=== PATIENT | male | born 1950 | race Caucasian/White ===

== ENCOUNTER 2016-07-13 09:26 | Inpatient (IN) | payer OTHER ==
[2016-06-26 13:43] VITALS: BMI 26.0
--- NOTE | 2016-06-26 14:13 | PAT Medication Instructions ---
Service Date Jun 26, 2016. Current Home Medication List Acetaminophen (Tylenol Arthritis Ext Rel), 650-1,300 MG PO Q8H PRN for PRN Celecoxib (CeleBREX), 200 MG PO BID Doxycycline (Monohydrate) (Doxycycline), 100 MG PO UD PRN for RN Meclizine Hcl (Meclizine Hcl), 1 TAB PO PRN Multivitamin (Multivitamin), 1 TAB PO QAM Nutritional Supplements (Osteo Advance), 1 TAB PO QAM Probiotic Product (Probiotic), 1 TAB PO QAM [Clotrimazole Betha], 1 DOSE TOP PRN [Voltaren Gel], 1 DOSE TOP PRN Medication Instructions For Your Scheduled Surgery - Check with surgeon for instructions: Celecoxib (CeleBREX), 200 MG PO BID - Hold the following medications 24 hours prior to surgery: [Clotrimazole Betha], 1 DOSE TOP PRN [Voltaren Gel], 1 DOSE TOP PRN - Hold the following medications the morning of surgery: Probiotic Product (Probiotic), 1 TAB PO QAM Nutritional Supplements (Osteo Advance), 1 TAB PO QAM Multivitamin (Multivitamin), 1 TAB PO QAM - Take the following medications the morning of surgery with a sip of water: Meclizine Hcl (Meclizine Hcl), 1 TAB PO PRN (if needed) Acetaminophen (Tylenol Arthritis Ext Rel), 650-1,300 MG PO Q8H PRN for PRN (if needed) Doxycycline (Monohydrate) (Doxycycline), 100 MG PO UD PRN for RN (if needed) - Take the following medications as scheduled the night before surgery: Meclizine Hcl (Meclizine Hcl), 1 TAB PO PRN (if needed) Acetaminophen (Tylenol Arthritis Ext Rel), 650-1,300 MG PO Q8H PRN for PRN (if needed) Doxycycline (Monohydrate) (Doxycycline), 100 MG PO UD PRN for RN (if needed) If you have any questions please call us at [phone] (Frannie Obrien PA-C ) or [phone] or [phone]
[2016-06-26 14:14] LABS: BASO % 0.3 %; BASO ABS # 0.02 K/uL (0-0.2); COMPLETE YES; EOS % 4.8 %; HEMATOCRIT 43.5 % (42-52); IG% 0.1 %; LYMPH % 31.5 %; LYMPH ABS # 2.15 K/uL (1.2-3.4); MEAN CELL VOLUME 87.9 fL (80-100); MEAN CORPUSCULAR HEMOGLOBIN 30.5 pg (25-34); MEAN CORPUSCULAR HGB CONC 34.7 g/dl (32-36); MEAN PLATELET VOLUME 9.1 fL (7.4-10.4); MONO % 9.7 %; NEUT % 53.6 %; PLATELET COUNT 250 K/uL (130-400); RED BLOOD COUNT 4.95 M/uL (4.7-6.1); WHITE BLOOD COUNT 6.83 K/uL (4.8-10.8)
[2016-06-26 14:23] LABS: INR 0.9 (0.9-1.1); PARTIAL THROMBOPLASTIN RATIO 1.2
--- NOTE | 2016-06-26 14:55 | DIAGNOSTIC IMAGING REPORT ---
TWO VIEW CHEST CLINICAL HISTORY: Preoperative examination. FINDINGS: PA and lateral chest radiographs are obtained. No prior studies are available for comparison at the time of dictation. The cardiomediastinal silhouette is unremarkable. There is mild atherosclerotic calcification of the thoracic aorta. The lungs and pleural spaces are clear. There is no pneumothorax. The bony thorax appears intact. IMPRESSION: No active disease in the chest. Electronically signed by: Julien Marin M.D. 06/26/2016 2:53 PM Dictated Date/Time: 06/26/2016 2:52 PM
[2016-06-26 15:26] LABS: BUN/CREATININE RATIO 28.7 (10-20); CALCIUM 8.8 mg/dl (8.5-10.1); CREATININE 0.83 mg/dl (0.60-1.40)
[2016-06-26 15:26] LABS: URINE APPEARANCE CLEAR (CLEAR); URINE BILIRUBIN NEG (NEG); URINE COLOR YELLOW; URINE NITRITE NEG (NEG); URINE PH 5.5 (4.5-7.5); URINE SPECIFIC GRAVITY 1.023 (1.000-1.030); UROBILINOGEN NEG (NEG); ZZUR CULT IF INDIC CLEAN CATCH NO
[2016-06-26 15:36] LABS: MANUAL MICROSCOPIC REQUIRED? NO; REVIEW REQ? NO
--- NOTE | 2016-07-07 22:17 | HISTORY & PHYSICAL EXAMINATION ---
DATE OF ADMISSION: 07/13/2016 CHIEF COMPLAINT: Bilateral hip pain and discomfort, left side greater than right. HISTORY OF PRESENT ILLNESS: The patient is a 66-year-old gentleman who presents for surgical treatment of his left hip primarily. He has got a fairly long history of bilateral hip pain and discomfort, left side a bit worse than the right. He has been managed by Dr. Pratt and then referred to my clinic for definitive treatment/hip replacement. He describes groin and thigh pain. The left side is worse than the right. 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 He works on stretching regularly and trying to manage this without much success. He is taking Celebrex which takes the edge off that is about it. He has difficulty putting his shoes and socks on. He cannot walk any long distance and would like to begin having treatment to fix this problem in both hips. He would like to do his left hip first. PAST MEDICAL HISTORY: 1. Elevated cholesterol. 2. Vertigo. 3. Spinal stenosis. 4. Hernia, status post repair. PAST SURGICAL HISTORY: 1. Right ankle spur removal and arthrodesis. 2. Appendectomy. 3. Herniorrhaphy. ALLERGIES: PENICILLIN WHICH CAUSES RASH. HE ALSO DESCRIBES ALLERGY TO AVELOX AND AUGMENTIN. CURRENT MEDICINES: 1. Celebrex 200 mg a day. 2. Diclofenac gel. 3. Centrum Silver. 4. Osteo Bi-Flex. 5. Probiotic. 6. Zoster vaccine. 7. Tylenol. SOCIAL HISTORY: A 66-year-old male. 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 He is . FAMILY HISTORY: Noncontributory. REVIEW OF SYSTEMS: Negative for diabetes, neurologic problems, vascular problems or bleeding disorders. Denies any chest pain or shortness of breath. He does have underlying spinal stenosis and struggles with this. PHYSICAL EXAMINATION: GENERAL: Reveals a healthy pleasant thin male. He looks to be in excellent health. HEENT: Benign. NECK: Supple. No lymphadenopathy. LUNGS: Clear to auscultation. HEART: Regular rate and rhythm. ABDOMEN: Soft, nontender, nondistended. EXTREMITIES: Grossly neurovascularly intact except as follows: Examination of both lower extremities reveals patient walks with a slightly antalgic gait. He limps on the left side a little bit more than the right. He walks with kind of stiff hips a bit. Leg lengths clinically appear pretty equal. He does have pretty reasonable hip motion on both sides, concerning his advanced arthritis and internally rotate to 10 degrees bilaterally with some mild pain. Negative straight leg raise on either side. X-RAYS: X-rays of both hips reveal advanced bilateral hip DJD, the left side worse than the right. He has got complete loss of the superior joint space, left side worse than the right. He has got cystic changes in the femoral head with some flattening of the femoral head on the left side. 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 He also has underlying spinal stenosis. He has failed conservative treatment and would like to have his hips doing better. PLAN: We are going to take him to the operating room and do left total hip replacement. The risks and benefits of this procedure were explained to patient including but not limited to DVT, PE, , infection, neurological injury, vascular injury, bleeding problem, pain, limited range of motion, stiffness, failure to relieve symptoms, incomplete relief of symptoms, leg length inequality, need for further surgery in the future, etc. The patient understands and desires to proceed. Informed consent was obtained. She does have arthritis in both hips and we will likely lengthen his left hip a bit. He is going to need his right side done and that can be lengthened at that time. He does have fairly good motion considering his advanced disease and I think he is at slightly increased risk of dislocation so we will try to maximize his stability. As far as discharge plans, his is an occupational therapist. He is planning to be discharged to home using [facility] home health program. He can take Celebrex up to the time of surgery. KORTNEY
[2016-07-13] VITALS (17 sets, daily range): BP systolic 102–159; BP diastolic 65–102; PULSE 46–80; TEMP 36.4–36.7; O2SAT 2–100; Ht 172.7 cm; Wt 78.0 kg
[~2016-07-13] VITALS: Ht 172.7 cm; Wt 78.0 kg
[~2016-07-13 09:26] MED LIST: ACET1TAB84 PO; ACETAMINOPHEN 500 MG TAB PO SCH; BUPIVACAINE 0.5 % 5 MG/1 ML PF 10ML VIAL ONE; CLB/200 PO; CLINDAMYCIN 600 MG/54 ML D5W IV SCH; DOXY-300 PO; FAMOTIDINE 20 MG TAB PO SCH; GABAPENTIN 300 MG CAP PO SCH; GENERAL ORDER PROBLEM SCH; LACTATED RINGER'S 1000ML 1,000 ML IV SCH; LACTATED RINGER'S 1000ML 500 ML IV ONE; LACTATED RINGER'S 1000ML IV SCH; MECL1TAB42 PO; METOCLOPRAMIDE HCL 10 MG TAB PO SCH; MISCCAP80 PO; MULT-506 PO; NUTRTAB55 PO; SCOPOLAMINE 1.5 MG TDSY TD SCH; TRANEXAMIC ACID INJ 1,000 MG in SODIUM CHLORIDE 0.9% 100ML 100 ML IV SCH; VOLTAREN GEL TOP; [UNRECOGNIZED DRUG - OTHER] TOP
[2016-07-13] MEDS ORDERED: HYDROmorphone INJ 1 MG/ML SYR IV PRN (09:45)
[2016-07-13] MEDS ORDERED: MEPERIDINE HCL 25 MG/ML CARP IV PRN (09:45)
[2016-07-13] MEDS ORDERED: FENTANYL CITRATE INJ 50 MCG/1 ML 2 ML VIAL IV PRN (09:45)
[2016-07-13] MEDS ORDERED: LABETALOL HCL IV 5 MG/ML 20ML IV PRN (09:45)
[2016-07-13] MEDS ORDERED: ATROPINE SULFATE 0.1 MG/ML 5ML SYR IV PRN (09:45)
[2016-07-13] MEDS ORDERED: ONDANSETRON INJ 2 MG/ML 2 ML VIAL IV PRN ×2 (09:45→13:30)
[2016-07-13] MEDS ORDERED: EpHEDrine SULFATE INJ 50 MG/ML AMP IV PRN ×2 (09:45→14:15)
[2016-07-13] MEDS ORDERED: BACITRACIN 50000 UNIT VIAL ONE (10:54)
[2016-07-13] MEDS ORDERED: BUPIVACAINE/EPINEPHRINE 0.5% MPF 1:200,000 30 ML VIAL ONE (10:54)
[2016-07-13] MEDS ORDERED: MIDAZOLAM HCL 1 MG/ML 2ML VIAL ONE ×2 (11:16)
[2016-07-13] MEDS ORDERED: FENTANYL CITRATE INJ 50 MCG/1 ML 2 ML VIAL ONE (11:16)
[2016-07-13] MEDS ORDERED: MoRPHine SULFATE PF 1 MG/ML 10 ML AMP/VIAL ONE (11:16)
--- NOTE | 2016-07-13 11:34 | History & Physical Bridge Note ---
H&P Re-Evaluation Bridge Note: I have examined the patient, reviewed the History & Physical and in the interval since the performance of the History & Physical I have noted the following changes of clinical significance: No changes noted
[2016-07-13] MEDS ORDERED: ONDANSETRON INJ 2 MG/ML 2 ML VIAL ONE (12:06)
[2016-07-13] MEDS ORDERED: PHENYLEPHRINE 100MCG/ML 5ML SYR ONE (12:16)
--- NOTE | 2016-07-13 13:16 | [facility] Post Operative Brief Note ---
Immediate Operative Summary Operative Date July 13, 2016. Pre-Operative Diagnosis Left Hip Degenerative Joint Disease Post-Operative Diagnosis Left Hip Degenerative Joint Disease Procedure(s) Performed Left total hip arthroplasty, uncemented Surgeon Dr. Núñez Nurse [employer] Surgeon(s) ELVIA Boyer Estimated Blood Loss 200ml Findings Left Hip DJD Fluids (cc crystalloids) 2000 cc Specimens A) Left femoral head- bone & tissue Drains None Anesthesia Spinal Complication(s) None Disposition Recovery Room / PACU
[2016-07-13] MEDS ORDERED: ALUMINUM/MAGNESIUM/SIMETH (MAALOX MAX) 30 ML UDC PO PRN (13:30)
[2016-07-13] MEDS ORDERED: BISACODYL 10 MG SUPP PR PRN (13:30)
[2016-07-13] MEDS ORDERED: SILVER SULFADIAZINE 1% CR 50 GM JAR EXT PRN (13:30)
[2016-07-13] MEDS ORDERED: BETAMETHASONE/CLOTRIMAZOLE CR 45 GM TUBE PR PRN (13:30)
[2016-07-13] MEDS ORDERED: TAMSULOSIN HCL 0.4 MG CAP PO PRN (13:30)
[2016-07-13] MEDS ORDERED: MAGNESIUM HYDROXIDE SUSP 30 ML UDC PO PRN (13:30)
--- NOTE | 2016-07-13 13:41 | DIAGNOSTIC IMAGING REPORT ---
LEFT PELVIS/UNILATERAL HIP 1 VIEW CLINICAL HISTORY: IN PACU - A/P PELVIS and LATERAL HIP INCLUDING ALL OF IMPLANT postoperative evaluation COMPARISON: None. DISCUSSION: Total left hip replacement. Good contact between prosthetic and underlying bone. Findings suggestive of a vascular process of the contralateral right hip. Expected postoperative soft tissue change. IMPRESSION: Anatomic alignment status post total left hip arthroplasty. Electronically signed by: Charly Jones M.D. 07/13/2016 1:40 PM Dictated Date/Time: 07/13/2016 1:39 PM
[2016-07-13] MEDS ORDERED: LACTATED RINGER'S 1000ML 500 ML IV PRN (14:07)
[2016-07-13] MEDS ORDERED: NALOXONE HCL INJ 0.08 MG in SYRINGE 1.8 ML IV PRN (14:07)
[2016-07-13] MEDS ORDERED: SODIUM CHLORIDE 0.9% 1000ML 1,000 ML IV PRN (14:07)
[2016-07-13] MEDS ORDERED: NALOXONE HCL INJ 1 MG in SODIUM CHLORIDE 0.9% 1000ML 1,000 ML IV PRN (14:07)
--- NOTE | 2016-07-13 14:09 | Anesthesiology Progress Note ---
Anesthesia Post Op Note Date & Time July 13, 2016 at 14:09 Vital Signs Pain Intensity: 0 Vital Signs Past 12 Hours Date Time Temp Pulse Resp B/P Pulse Ox O2 Delivery O2 Flow Rate FiO2 07/13/16 14:04 36.9 07/13/16 14:03 59 16 94 07/13/16 14:03 60 16 07/13/16 14:01 133/83 07/13/16 13:58 70 18 07/13/16 13:58 71 18 92 07/13/16 13:55 116/73 07/13/16 13:53 65 18 97 07/13/16 13:53 64 18 07/13/16 13:50 123/66 07/13/16 13:48 74 19 96 07/13/16 13:48 74 19 07/13/16 13:46 114/65 07/13/16 13:43 70 22 07/13/16 13:43 70 22 100 07/13/16 13:40 126/74 07/13/16 13:38 76 21 95 07/13/16 13:38 74 21 07/13/16 13:35 115/67 07/13/16 13:33 72 17 100 07/13/16 13:33 73 17 07/13/16 13:30 114/70 07/13/16 13:28 72 16 97 07/13/16 13:28 72 16 07/13/16 13:27 71 13 07/13/16 13:27 70 13 100 07/13/16 13:25 119/65 07/13/16 13:22 74 14 07/13/16 13:22 74 14 99 07/13/16 13:20 108/67 07/13/16 13:17 77 12 07/13/16 13:17 76 12 113/66 100 07/13/16 13:17 36.4 74 14 113/66 99 Nasal Cannula 2 07/13/16 09:35 36.6 80 16 159/102 96 Room Air Notes Mental Status: alert / awake / arousable, participated in evaluation Pt Amnestic to Procedure: Yes Nausea / Vomiting: adequately controlled Pain: adequately controlled Airway Patency, RR, SpO2: stable & adequate BP & HR: stable & adequate Hydration State: stable & adequate Neuraxial Anesthesia: was administered, sensory block is resolving Anesthetic Complications: no major complications apparent
[2016-07-13] MEDS ORDERED: NALBUPHINE HCL INJ 10 MG/ML AMP IV PRN (14:15)
[2016-07-13] MEDS ORDERED: DC INTRASPINAL MORPHINE SCH (14:15)
[2016-07-13] MEDS ORDERED: NO NARCOTICS OR SEDATIVES SCH (14:15)
[2016-07-13] MEDS ORDERED: DiphenhydrAMINE HCL 50 MG/ML VIAL IV PRN (14:15)
[2016-07-13] MEDS ORDERED: NALOXONE HCL 0.4 MG/1 ML VIAL/CARP IV PRN (14:15)
[2016-07-13] MEDS ORDERED: MoRPHine SULFATE PF 1 MG/ML 10 ML AMP/VIAL EPI PRN (14:15)
[2016-07-13] MEDS: CHECK SCOPOLAMINE PATCH PLACEMENT SCH ×2 (15:57→23:59)
[2016-07-13] MEDS: D5W AND 1/2NSS + 20MEQ KCL 1,000 ML IV SCH (15:57)
--- NOTE | 2016-07-13 16:12 | PROGRESS NOTE ---
DATE: 07/13/2016 SUBJECTIVE: A 66-year-old gentleman postop from a left hip replacement. He is doing well. He is feeling pretty groggy. No pain yet. Still has no function in his legs due to the spinal. No chest pain or shortness of breath. Not feeling dizzy or lightheaded. OBJECTIVE: VITAL SIGNS: Temperature is 36.4. Vital signs stable. GENERAL: Reveals a healthy, pleasant, middle-aged male. He is lying in bed, looks pretty comfortable. Does seem still a bit groggy. LUNGS: Clear to auscultation. HEART: Regular rate and rhythm. ABDOMEN: Soft, nontender, nondistended. EXTREMITIES: Grossly neurovascularly intact except as follows. Examination of the left leg reveals leg lengths to be equal. Hip is located. He does not have any significant motor function in either leg. He has got brisk refill. X-RAYS: X-rays of the left hip from today are reviewed. X-rays revealed the uncemented total hip arthroplasty. Components looked to be in good position. No signs of problems. ASSESSMENT: A 66-year-old gentleman postop from a left total hip replacement. He is doing well. This spinal is still in effect. Hip is located. His pain is controlled. PLAN: 1. DVT prophylaxis including thigh-high TEDs, SCDs, and aspirin twice a day. 2. PT/OT. Weightbearing as tolerated. Left total hip protocol. 3. Pain control, not having any pain yet. We will obviously have to use some p.o. pain medicines as time goes on. We will try and limit narcotics. 4. IV antibiotics x24 hours. 5. Disposition: He is hoping to be discharged to home likely with some home health once adequately recovered.
--- NOTE | 2016-07-13 16:12 | OPERATIVE REPORT ---
DATE OF OPERATION: 07/13/2016 SURGEON: Dr. Jason Núñez. TEMPLATE FITTER: ELVIA Olson PREOPERATIVE DIAGNOSIS: Left hip degenerative joint disease. POSTOPERATIVE DIAGNOSIS: Same. PROCEDURE PERFORMED: Left ceramic on highly cross-linked polyethylene uncemented total hip arthroplasty. COMPLICATIONS: None. ESTIMATED BLOOD LOSS: 200 mL. FLUID REPLACEMENT: 2000 mL crystalloid fluid replacement. ANESTHESIA: Spinal. DRAINS: None. SPECIMENS: Left femoral head sent for pathology. OPERATIVE INDICATIONS: The patient is a 66-year-old gentleman who has had a fairly long history of bilateral hip pain and discomfort, left side greater than right. He has been through extensive conservative treatment provided by my partner Dr. Pratt. Over time, this has failed. He got disabling hip pain. The left side is worse than right. X-rays revealed advanced hip DJD. The patient elected to proceed with operative treatment. OPERATIVE FINDINGS: Operative findings revealed advanced left hip DJD. He had grade 4 [id number] disease of the femoral head and acetabulum. He had a moderate sized joint effusion. A pretty large medial osteophyte. OPERATIVE IMPLANTS: Operative implants consisted of: 1. Biomet G7 size 58-mm acetabular shell. 2. A 6.5 cancellous acetabular screws, one at 35 mm length and one at 20 mm in length. 3. An apex hole eliminator. 4. Highly cross-linked polyethylene liner with 58 mm outer diameter and 36 mm inner diameter. 5. A DePuy size 16.5 small stature AML femoral stem. 6. A +8.5/36 mm ceramic articular ball. OPERATIVE PROCEDURE: The patient was taken to the operating room, identified and placed on the operating table in the supine position. All contact areas were appropriately padded. IV antibiotics were provided by anesthesia team. A spinal anesthetic had been implemented in the holding area. A Hines catheter was placed in sterile fashion. The patient was then placed in the right lateral decubitus position. An axillary roll was placed. Stulberg hip positioner was used for positioning. Left hip and leg were then prepped and draped in the usual sterile fashion. A posterolateral approach to the left hip was then performed through a curvilinear incision centered over the greater trochanter. Sharp dissection was carried out through the subcutaneous tissues down to the level of the IT band and gluteal fascia. The IT band and gluteal fascia were then incised longitudinally in line with the skin incision. The underlying greater trochanteric bursa was excised. The piriformis and external rotators were tagged and taken off the posterior aspect of the femur. Great care was taken throughout the procedure to protect the sciatic nerve at all times. Posterior capsulotomy was then performed leaving a large flap for later repair. It was internally rotated and dislocated. Femoral neck osteotomy cut was made with the final cut 9 mm above the lesser trochanter. Femoral head was removed and sent for pathology. The femur was retracted anteriorly. Attention was then drawn to the acetabulum. The acetabular labrum was excised. The pulvinar fat was excised. Sequential reaming of the acetabulum was then performed beginning with a size 53 and progressing up to 57. A 58-mm Biomet G7 acetabular shell was then placed in about 40 degrees of lateral opening and 20 degrees of anteversion. It was fixed with two 6.5 cancellous acetabular screws. A trial liner was placed. Attention was then drawn to the femur. The proximal femur was entered with cookie cutter followed by canal finder and lateralizing reamer. Sequential reaming of the femur was then performed beginning with a size 10 and progressing up to a 16. We got pretty good chatter at a 16. I then broached beginning with a size 13.5 small broach and progressing up to a 16.5 broach. I was planning on placing a large implant, but the small broach had to be placed several times to get it down. I did not think his femur could tolerate the large implant. We elected to stop there. Calcar reamer was used to smoothen off the calcar. The hip was then trialed. It was fully stable with all articular balls. In order to recreate soft tissue tension, I lengthened his leg a little bit to maximize stability by using the +8.5 ball. I knew he is going to need his other hip replaced and I wanted have some ability to lengthen that as well. The hip was located. It was found to be stable in full extension and external rotation, flexion to 90 degrees, and internal rotation over [address] We elected to place these implants. All trial implants were removed. An apex hole eliminator was placed. Highly cross-linked polyethylene liner was placed. A 16.5 small stature AML femoral stem was placed. The +8.5/36 mm ceramic articular ball was placed. Hip was located and once again found to be stable. Attention was then drawn toward closing. The wound was irrigated with copious amounts of pulsatile lavage solution. I did inject locally with 60 mL of 0.5% Marcaine with epinephrine. The posterior capsule and external rotators were repaired through drill holes in the posterior trochanter with #2 Ti-Cron suture. The IT band and gluteal fascia were then closed with #1 PDS suture in running fashion. The subcutaneous tissues were then closed with 2-0 Dexon suture in a buried interrupted fashion. Skin was closed with skin anabela. Leg was then cleaned and dried and a sterile dressing of Xeroform, 4 x 4s, sterile ABD pad and foam tape was applied. The patient then transferred to the recovery room in stable condition. The patient tolerated the procedure well with no complications. All needle and sponge counts were correct at the end of the operation. I attest to the content of the Intraoperative Record and any orders documented therein. Any exceptions are noted below. KORTNEY
[2016-07-13] MEDS: FERROUS GLUCONATE 324 MG TAB PO SCH (17:45)
[2016-07-13] MEDS: KETOROLAC TROMETHAMINE 15 MG/ML VIAL IV. SCH (18:17)
[2016-07-13] MEDS ORDERED: TRANEXAMIC ACID INJ 1,000 MG in SODIUM CHLORIDE 0.9% 100ML 100 ML IV ONE (20:00)
[2016-07-13] MEDS: CLINDAMYCIN IV 600 MG in DEXTROSE 5% ADD-VANTAGE 50ML 50 ML IV SCH (21:30)
[2016-07-13] MEDS: ASPIRIN 325 MG ECTAB PO SCH (21:31)
[2016-07-13] MEDS: ACETAMINOPHEN 500 MG TAB PO SCH (21:31)
[2016-07-13] MEDS: DOCUSATE SODIUM 100 MG CAP PO SCH (21:31)
[2016-07-14] VITALS (17 sets, daily range): BP systolic 93–116; BP diastolic 56–73; PULSE 58–73; TEMP 36.7–37.3; O2SAT 92–99
[2016-07-14] MEDS: KETOROLAC TROMETHAMINE 15 MG/ML VIAL IV. SCH ×4 (00:03→17:59)
[2016-07-14] MEDS: D5W AND 1/2NSS + 20MEQ KCL 1,000 ML IV SCH ×2 (01:47→12:08)
[2016-07-14] MEDS ORDERED: METOCLOPRAMIDE HCL INJ 5 MG/ML 2 ML VIAL IV PRN (05:30)
[2016-07-14] MEDS ORDERED: DiphenhydrAMINE HCL 50 MG/ML VIAL IV PRN (05:31)
[2016-07-14] MEDS ORDERED: MoRPHine SULFATE 2 MG/ML CARP IV PRN (05:31)
[2016-07-14] MEDS ORDERED: ZOLPIDEM TARTRATE 5 MG TAB PO PRN (05:31)
[2016-07-14] MEDS: CLINDAMYCIN IV 600 MG in DEXTROSE 5% ADD-VANTAGE 50ML 50 ML IV SCH (05:42)
[2016-07-14] MEDS: ACETAMINOPHEN 500 MG TAB PO SCH ×3 (05:43→21:18)
[2016-07-14 06:01] LABS: BASO % 0.1 %; BASO ABS # 0.01 K/uL (0-0.2); COMPLETE YES; EOS % 0.4 %; HEMATOCRIT 34.5 % (42-52); IG% 0.1 %; LYMPH % 20.8 %; LYMPH ABS # 1.97 K/uL (1.2-3.4); MEAN CELL VOLUME 89.6 fL (80-100); MEAN CORPUSCULAR HEMOGLOBIN 30.4 pg (25-34); MEAN CORPUSCULAR HGB CONC 33.9 g/dl (32-36); MONO % 11.3 %; NEUT % 67.3 %; PLATELET COUNT 175 K/uL (130-400); RED BLOOD COUNT 3.85 M/uL (4.7-6.1); WHITE BLOOD COUNT 9.47 K/uL (4.8-10.8)
[2016-07-14 06:31] LABS: BUN/CREATININE RATIO 22.5 (10-20); CALCIUM 7.8 mg/dl (8.5-10.1); CREATININE 0.8 mg/dl (0.60-1.40); POTASSIUM 3.8 mmol/L (3.5-5.1)
[2016-07-14] MEDS ORDERED: ASPEC325 PO (08:07)
[2016-07-14] MEDS ORDERED: OXYC-57 PO (08:07)
--- NOTE | 2016-07-14 08:09 | Discharge Instructions ---
Discharge Instructions Date of Service July 14, 2016. Admission Reason for Admission: Left Hip Degenerative Joint Disease Discharge Discharge Diagnosis / Problem: Left Hip Replacement Discharge Goals Goal(s): Decrease discomfort, Improve function, Increase independence, Improve disease control, Therapeutic intervention Activity Recommendations Activity Limitations: per Instructions/Follow-up section (Total Hip Precautions ) Weightbearing Status: Left weightbearing . Instructions / Follow-Up Instructions / Follow-Up ACTIVITY RECOMMENDATIONS: Physical Therapy: * Aggressive physical therapy is not usually needed. You will learn to take care of yourself safely and walk. * Follow the "Hip Precautions Instructions." * In some cases, the social services technician at the hospital will arrange to have a therapist come to your house for the first couple of weeks to help you learn these skills. * You need to practice on your own or with the help of a family member as needed. * When you learn these skills, most of the therapy can be done on your own. Home Exercise: * You were shown a series of exercises in the hospital. Do these exercises three to four times each day including the exercises you were shown in physical therapy. Walking: * Get up and walk several times each day. For the first four weeks, try not to stand or walk for more than one hour at a time. If you do stand or walk for more than one hour, you will not hurt anything, but your leg will likely swell. * As you feel comfortable, you may change from the walker or crutches to a cane and then to independent walking. MEDICATIONS: New Medicine: * You will likely be taking one or more of these medicines: 1. Percocet - Take, as directed, when you need it, every four to six hours to control your pain. 2. Aspirin - Thins your blood to lessen the chance of forming a blood clot. * The most common side effects of pain medicine and iron are nausea and constipation. If nausea or constipation is too much of a problem or if you have any questions about your new medicines or doses, call [facility] at . We will try to help you manage these issues. VERY IMPORTANT TO READ AND REVIEW" Pain: * The immediate post-operative period after hip replacement surgery is often quite painful. * You are given a prescription for pain medicine. You should take it, as directed, when you need it, especially before physical therapy and before going to bed. Pain that interferes with sleep is very common and can last several months. * You will likely need pain medicine for the first two to four weeks. It will not stop all of the pain. The pain will lessen and as you feel better, you may change to milder pain medicine such as Tylenol. * The most common side effects of pain medicine are nausea and constipation, so don't take more than you need. SPECIAL CARE INSTRUCTIONS: TEDs/Elastic Stockings: * The white elastic stockings help limit swelling and prevent blood clots from forming in your legs. The more you wear them, the more they work. * Wear them for six weeks. Prevention of Infection: * Take antibiotics one hour before any dental cleaning, dental work, urological procedure, gastrointestinal procedure or any invasive surgery in order to prevent your new joint from getting infected. * You may get the antibiotics from the doctor performing the procedure or you may call our office at before and we will call in a prescription to the pharmacy of your choice. Things to Watch For: * Drainage from the incision site that occurs more than one week after your surgery. * Severely increased leg pain or swelling. * Increased redness at the incision site. * Fever above 102 degrees Fahrenheit. * Unusual chest pain or shortness of breath. * Unusual pain or burning with urination. Call [facility] at with any of the above problems or if you have any questions about your medicines or recovery. FOLLOW UP VISIT: Make an appointment to see your doctor for approximately two weeks after surgery for a progress check and staple removal by calling the office at . Current Hospital Diet Patient's current hospital diet: Regular Diet Discharge Diet Recommended Diet: Regular Diet Procedures Procedures Performed: Left total hip arthroplasty, uncemented Pending Studies Studies pending at discharge: no Medical Emergencies . Who to Call and When: Medical Emergencies: If at any time you feel your situation is an emergency, please call [phone] immediately. . Non-Emergent Contact Non-Emergency issues call your: Surgeon . "Provider Documentation" section prepared by Jason Núñez. . VTE Core Measure Inpt VTE Proph given/why not?: Other Anticoagulation, T.E.D. Stockings, SCD's
--- NOTE | 2016-07-14 08:23 | PROGRESS NOTE ---
DATE: 07/14/2016 SUBJECTIVE: A 66-year-old gentleman, postop day 1 from left total hip replacement. He is doing well. Fairly mild pain. No chest pain or shortness of breath. Not feeling dizzy or lightheaded. OBJECTIVE: VITAL SIGNS: Temperature 36.7. Vital signs stable. PHYSICAL EXAMINATION: GENERAL: Reveals a healthy, pleasant, middle-aged male. He is sitting up in bed and looks pretty comfortable. LUNGS: Clear to auscultation. HEART: Regular rate and rhythm. ABDOMEN: Soft, nontender, and nondistended. EXTREMITIES: Grossly neurovascularly intact except as follows: Examination of left hip and leg reveals the dressing to be clean, dry and intact. Leg lengths are equal. Hip is located. He is neurologically intact. He can dorsiflex and plantarflex his foot appropriately. LABORATORY DATA: Hemoglobin 11.7. Hematocrit 34.5. Electrolytes are stable. ASSESSMENT: A 66-year-old male postop day 1 from a left hip replacement, doing well. His pain is controlled. Hip is located. He is neurologically intact. PLAN: 1. DVT prophylaxis including thigh-high TEDs, SCDs, and aspirin twice a day. 2. PT/OT. Weightbearing as tolerated. Left total hip protocol. 3. Pain control. Doing well with current pain regimen. 4. Disposition: Plan to discharge to home with some home health once adequately recovered.
[2016-07-14] MEDS: CHECK SCOPOLAMINE PATCH PLACEMENT SCH ×2 (08:35→15:55)
[2016-07-14] MEDS: FERROUS GLUCONATE 324 MG TAB PO SCH ×3 (08:35→17:59)
[2016-07-14] MEDS: TAPENTADOL ER 50 MG TABCR PO SCH ×2 (08:36→21:17)
[2016-07-14] MEDS: LACTOBACILLUS ACIDOPHILUS (FLORANEX) TAB PO SCH (08:36)
[2016-07-14] MEDS: PANTOprazole SOD 40 MG TAB PO SCH (08:36)
[2016-07-14] MEDS: MULTIVITAMIN TAB PO SCH (08:36)
[2016-07-14] MEDS: ASPIRIN 325 MG ECTAB PO SCH ×2 (08:37→21:17)
[2016-07-14] MEDS: DOCUSATE SODIUM 100 MG CAP PO SCH ×2 (08:37→21:17)
[2016-07-14] MEDS ORDERED: NUTRITIONAL SUPPLEMENTS PO SCH (09:00)
[2016-07-14] MEDS ORDERED: MULTIVITAMIN TAB PO SCH (09:00)
[2016-07-14] MEDS: OXYCODONE HCL IR 5 MG TAB (IMMEDIATE RELEASE) PO PRN ×2 (14:10→18:17)
[2016-07-15] MEDS: CHECK SCOPOLAMINE PATCH PLACEMENT SCH (00:14)
[2016-07-15] MEDS: OXYCODONE HCL IR 5 MG TAB (IMMEDIATE RELEASE) PO PRN ×2 (00:17→08:16)
[2016-07-15] MEDS: KETOROLAC TROMETHAMINE 15 MG/ML VIAL IV. SCH ×2 (00:18→05:35)
[2016-07-15] MEDS: ACETAMINOPHEN 500 MG TAB PO SCH (05:35)
[2016-07-15 06:36] VITALS: BP 103/63; PULSE 65; TEMP 37.2; O2SAT 93
[2016-07-15] MEDS: MULTIVITAMIN TAB PO SCH (08:15)
[2016-07-15] MEDS: PANTOprazole SOD 40 MG TAB PO SCH (08:15)
[2016-07-15] MEDS: FERROUS GLUCONATE 324 MG TAB PO SCH (08:15)
[2016-07-15] MEDS: TAPENTADOL ER 50 MG TABCR PO SCH (08:15)
[2016-07-15] MEDS: LACTOBACILLUS ACIDOPHILUS (FLORANEX) TAB PO SCH (08:15)
--- NOTE | 2016-07-15 09:18 | PROGRESS NOTE ---
DATE: 07/15/2016 SUBJECTIVE: A 66-year-old gentleman postop day 2 from a left hip replacement. He is doing pretty well. He had one episode of pretty severe pain yesterday after walking. It seems like this has resolved. It was mostly buttock type pain. No chest pain or shortness of breath. Not feeling dizzy or lightheaded. OBJECTIVE: VITAL SIGNS: Temperature 37.2. Vital signs stable. PHYSICAL EXAMINATION: GENERAL: Reveals a healthy, pleasant, middle-aged male. He is sitting up in his bedside chair and looks comfortable. LUNGS: Clear to auscultation. HEART: Regular rate and rhythm. ABDOMEN: Soft, nontender, nondistended. EXTREMITIES: Grossly neurovascularly intact except as follows: Examination of left leg reveals the dressing to be clean, dry and intact. Hip is located. He is neurologically intact. ASSESSMENT: A 66-year-old gentleman postop day 2 from left total hip replacement, doing pretty well. My suspicion is that he has probably pulled his external rotator muscles off with this severe pain. His hip is located. There are no signs of more concerning issues. PLAN: 1. DVT prophylaxis including thigh-high TEDs, SCDs, and aspirin twice a day. 2. PT/OT. Weightbearing as tolerated. Left total hip protocol. 3. Pain control, doing pretty well with current pain regimen. 4. Disposition: Plan to discharge to home with some home health lately today.
[2016-07-15] MEDS: DOCUSATE SODIUM 100 MG CAP PO SCH (09:20)
[2016-07-15] MEDS: ASPIRIN 325 MG ECTAB PO SCH (09:20)
[2016-07-15 09:39] VITALS: BP 103/63; PULSE 65; TEMP 37.2; O2SAT 93
[2016-07-15 10:46] VITALS: BP 114/63; PULSE 68; O2SAT 98
--- NOTE | 2016-07-18 16:37 | DISCHARGE SUMMARY ---
ADMITTING PHYSICIAN AND SURGEON: Dr. Núñez. ADMITTING DIAGNOSIS: Left hip degenerative joint disease. SURGERY PERFORMED: Left total hip arthroplasty. SECONDARY DIAGNOSES: Elevated cholesterol, vertigo, spinal stenosis, hernia repair. CONSULTS: None obtained. HISTORY AND PHYSICAL EXAMINATION: Well documented in the patient's chart. HOSPITAL COURSE: The patient was admitted on 07/13/2016 underwent total hip arthroplasty, tolerated the procedure well. There were no complications, transferred to PACU postoperatively and later to the orthopedic floor for further care. He was given clindamycin for antibiotic prophylaxis, YONG stockings, SCDs and aspirin for DVT prophylaxis. Her hemoglobin, hematocrit and vital signs were monitored during his hospital stay and remained stable. He developed some mild postoperative anemia, did not require any blood transfusions. There were no complications. By postoperative day 2, he was tolerating a general diet. Pain was controlled with oral pain medicine. He was participating in physical therapy and had no signs or symptoms of deep vein thrombosis. On postop day 2, he was discharged home and set up with home health services, given printed discharge instructions including new prescriptions for aspirin 325 mg b.i.d. and Percocet. Continue his home medicines. Continue physical therapy, weightbearing as tolerated, YONG stockings, total hip precautions and follow up in 10-12 days or sooner if there are any problems or concerns.
== END 2016-07-15 10:30 | disposition home health service (06) | DRG 470 ==
LOC: ENRESERVDT → ENRESERVTM → C.ACU 09:26 → C.3E 11:30
PROVIDERS: ADMIT Orthopaedic Surgery Sports Medicine; ATTEND Orthopaedic Surgery Sports Medicine
PROC: 0SRB04A Replacement of Left Hip Joint with Ceramic on Polyethylene Synthetic Substitute, Uncemented, Open Approach (ICD-10-PCS; principal; 2016-07-13 11:30)
DX: M16.12 Unilateral primary osteoarthritis, left hip (principal); E78.00 Pure hypercholesterolemia, unspecified

== ENCOUNTER → 2016-10-29 | Outpatient (CLI) | payer OTHER ==
[~2016-10-29] MED LIST changes: +ACET-24 PO; -ACETAMINOPHEN 500 MG TAB PO SCH; +ASPEC325 PO; -BUPIVACAINE 0.5 % 5 MG/1 ML PF 10ML VIAL ONE; -CLINDAMYCIN 600 MG/54 ML D5W IV SCH; -DOXY-300 PO; -FAMOTIDINE 20 MG TAB PO SCH; -GABAPENTIN 300 MG CAP PO SCH; -GENERAL ORDER PROBLEM SCH; -LACTATED RINGER'S 1000ML 1,000 ML IV SCH; -LACTATED RINGER'S 1000ML 500 ML IV ONE; -LACTATED RINGER'S 1000ML IV SCH; -MECL1TAB42 PO; -METOCLOPRAMIDE HCL 10 MG TAB PO SCH; +RXC5 PO; -SCOPOLAMINE 1.5 MG TDSY TD SCH; -TRANEXAMIC ACID INJ 1,000 MG in SODIUM CHLORIDE 0.9% 100ML 100 ML IV SCH; -VOLTAREN GEL TOP
[2016-10-29 14:11] LABS: INR 0.9 (0.9-1.1); PARTIAL THROMBOPLASTIN RATIO 1.1; PROTHROMBIN TIME (PATIENT) 10.1 SECONDS (9.0-12.0)
[2016-10-29 17:27] LABS: BLOOD UREA NITROGEN 18 mg/dl (7-18); BUN/CREATININE RATIO 21.2 (10-20); CARBON DIOXIDE 29 mmol/L (21-32); CHLORIDE 106 mmol/L (98-107); CREATININE 0.84 mg/dl (0.60-1.40); GLUCOSE 89 mg/dl (70-99); SODIUM 140 mmol/L (136-145)
[2016-10-29 17:28] LABS: C-REACTIVE PROTEIN 0.39 mg/dl (0-0.29)
== END | disposition home or self-care (01) ==
LOC: C.LABBC 12:25
PROVIDERS: ATTEND Orthopaedic Surgery Sports Medicine
DX: Z01.812 Encounter for preprocedural laboratory examination (principal)

== ENCOUNTER 2016-12-07 06:28 | Inpatient (IN) | payer OTHER ==
[2016-11-22 15:13] VITALS: BMI 25.0
--- NOTE | 2016-11-30 21:43 | HISTORY & PHYSICAL EXAMINATION ---
DATE OF ADMISSION: 12/07/2016 CHIEF COMPLAINT: Right hip pain. HISTORY OF PRESENT ILLNESS: The patient is a 66-year-old gentleman, now about 4-1/2 months out from a left hip replacement. His left hip is doing well. He continues to be bothered by right hip pain. He limps pretty much all the time. The more he walks, the more it hurts. He describes groin and thigh pain. Takes Celebrex and uses diclofenac gel with pretty minimal relief. He is happy with his left hip and would like to have his right hip replaced. PAST MEDICAL HISTORY: 1. Elevated cholesterol. 2. Vertigo. 3. Spinal stenosis. 4. Hernia repair. PAST SURGICAL HISTORY: Previous surgeries include: 1. Right ankle arthrodesis/spur removal. 2. Appendectomy. 3. Herniorrhaphy. 4. Left total hip replacement done 07/13/2016. ALLERGIES: PENICILLIN WHICH CAUSES A RASH. ALSO, DESCRIBES ALLERGIES TO AVELOX AND AUGMENTIN. CURRENT MEDICINES: Include: 1. Celebrex. 2. Diclofenac gel. 3. Centrum Silver. 4. Osteo Bi-Flex. 5. Probiotic. 6. Zoster vaccine. 7. Tylenol. SOCIAL HISTORY: This is a 66-year-old male. 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 He is . FAMILY HISTORY: Noncontributory. REVIEW OF SYSTEMS: Negative for diabetes, neurologic problems, vascular problems, bleeding disorders. No chest pain or shortness of breath. He does have some chronic back pain and some spinal stenosis. PHYSICAL EXAMINATION: GENERAL: Reveals a healthy pleasant thin male. He looks to be in excellent health. HEENT: Benign. NECK: Supple. No lymphadenopathy. LUNGS: Clear to auscultation. HEART: Has a regular rate and rhythm. ABDOMEN: Soft, nontender, nondistended. EXTREMITIES: Grossly neurovascularly intact except as follows: Examination of the right hip and leg reveals the right leg to be about 1 cm short compared to left. He has got a very stiff hip with internal rotation to neutral. Negative straight leg raise. He is neurologically intact. X-RAYS: X-rays of the right hip were reviewed. It shows advanced right hip DJD. He has got complete loss of the superior joint space. He has got flattening of his femoral head. He may have a segment of avascular necrosis. ASSESSMENT: A 66-year-old gentleman 4-1/2 months out from a left hip replacement, doing well with advanced right hip degenerative joint disease. He would like to have his right hip fixed. PLAN: We will take him to the operating room and do a right total hip replacement. The risks and benefits of this procedure were explained to the patient including but not limited to DVT, PE, , infection, neurological injury, vascular injury, bleeding problem, pain, limited range of motion, stiffness, failure to relieve symptoms, incomplete relief of symptoms, need for further surgery in the future, fracture, leg length inequality, nerve palsy, dislocation, need for revision surgery, etc. The patient understands and desires to proceed. Informed consent was obtained. I did tell him we will do the best we can to get his leg lengths as equal as possible. He is planning to be discharged to home with home health using [facility] home health program.
[2016-12-07] VITALS (18 sets, daily range): BP systolic 110–153; BP diastolic 67–92; PULSE 53–85; TEMP 36.4–36.8; O2SAT 16–100; Ht 172.7 cm; Wt 75.0 kg
[~2016-12-07] VITALS: Ht 172.7 cm; Wt 75.0 kg
[~2016-12-07 06:28] MED LIST changes: -ACET-24 PO; +ACETAMINOPHEN 500 MG TAB PO SCH; -ASPEC325 PO; +CEFAZOLIN 2000 MG/60 ML D5W 60 ML IV SCH; +FAMOTIDINE 20 MG TAB PO SCH; +GABAPENTIN 300 MG CAP PO SCH; +LACTATED RINGER'S 1000ML 1,000 ML IV SCH; +LACTATED RINGER'S 1000ML 500 ML IV ONE; +LACTATED RINGER'S 1000ML IV SCH; +METOCLOPRAMIDE HCL 10 MG TAB PO SCH; -NUTRTAB55 PO; -RXC5 PO; +SCOPOLAMINE 1.5 MG TDSY TD SCH; +TRANEXAMIC ACID INJ 1,000 MG in SODIUM CHLORIDE 0.9% 100ML 100 ML IV SCH; -[UNRECOGNIZED DRUG - OTHER] TOP
[2016-12-07] MEDS ORDERED: BUPIVACAINE 0.5 % 5 MG/1 ML PF 10ML VIAL ONE (06:34)
[2016-12-07] MEDS ORDERED: FENTANYL CITRATE INJ 50 MCG/1 ML 2 ML VIAL ONE (08:00)
[2016-12-07] MEDS ORDERED: MIDAZOLAM HCL 1 MG/ML 2ML VIAL ONE (08:00)
[2016-12-07] MEDS ORDERED: MORPHINE SULFATE PF 2MG/2ML SYR ONE (08:01)
[2016-12-07] MEDS ORDERED: LIDOCAINE HCL 2% 2 ML VIAL (20MG/ML) ONE (08:02)
[2016-12-07] MEDS ORDERED: ONDANSETRON INJ 2 MG/ML 2 ML VIAL ONE (08:02)
[2016-12-07] MEDS ORDERED: PROPOFOL IV EMULSION 10 MG/ML 20 ML VIAL IV ONE (08:02)
[2016-12-07] MEDS ORDERED: BUPIVACAINE/EPINEPHRINE 0.5% MPF 1:200,000 30 ML VIAL ONE (08:34)
[2016-12-07] MEDS ORDERED: BACITRACIN 50000 UNIT VIAL ONE (08:34)
[2016-12-07] MEDS ORDERED: NALOXONE HCL INJ 0.08 MG in SYRINGE 1.8 ML IV PRN (09:02)
[2016-12-07] MEDS ORDERED: SODIUM CHLORIDE 0.9% 1000ML 1,000 ML IV PRN (09:02)
[2016-12-07] MEDS ORDERED: LACTATED RINGER'S 1000ML 500 ML IV PRN (09:02)
[2016-12-07] MEDS ORDERED: NALOXONE HCL INJ 1 MG in SODIUM CHLORIDE 0.9% 1000ML 1,000 ML IV PRN ×4 (09:02)
[2016-12-07] MEDS ORDERED: MoRPHine SULFATE PF 1 MG/ML 10 ML AMP/VIAL EPI PRN (09:15)
[2016-12-07] MEDS ORDERED: KETOROLAC TROMETHAMINE 30 MG/ML VIAL IV. PRN ×2 (09:15)
[2016-12-07] MEDS ORDERED: EpHEDrine SULFATE INJ 50 MG/ML AMP IV PRN ×2 (09:15)
[2016-12-07] MEDS ORDERED: NALOXONE HCL 0.4 MG/1 ML VIAL/CARP IV PRN (09:15)
[2016-12-07] MEDS ORDERED: DiphenhydrAMINE HCL 50 MG/ML VIAL IV PRN (09:15)
[2016-12-07] MEDS ORDERED: PHENYLEPHRINE 100MCG/ML 5ML SYR IV PRN (09:15)
[2016-12-07] MEDS ORDERED: ATROPINE SULFATE 0.1 MG/ML 5ML SYR IV PRN (09:15)
[2016-12-07] MEDS ORDERED: NO NARCOTICS OR SEDATIVES SCH (09:15)
[2016-12-07] MEDS ORDERED: ONDANSETRON INJ 2 MG/ML 2 ML VIAL IV PRN ×2 (09:15)
[2016-12-07] MEDS ORDERED: MEPERIDINE HCL 25 MG/ML CARP IV PRN ×2 (09:15)
[2016-12-07] MEDS ORDERED: EpHEDrine SULFATE INJ 50 MG/ML AMP ONE (09:16)
[2016-12-07] MEDS ORDERED: SODIUM CHLORIDE 0.9% INJ 10 ML VIAL ONE (09:16)
[2016-12-07] MEDS ORDERED: PHENYLEPHRINE HCL INJ 10 MG/ML VIAL ONE (09:16)
--- NOTE | 2016-12-07 10:22 | [facility] Post Operative Brief Note ---
Immediate Operative Summary Operative Date Dec 07, 2016. Pre-Operative Diagnosis Right Hip Degenerative Joint Disease Post-Operative Diagnosis Same as preop Procedure(s) Performed Right Total Hip Arthroplasty Umcemented Surgeon Dr. Núñez Slot Floorperson Surgeon(s) Nghia Castro PA-C Estimated Blood Loss 200 ml Findings right Hip DJD Fluids (cc crystalloids) 1000 cc Specimens A. Right Femoral Head Drains None Anesthesia Spinal Complication(s) None Disposition Recovery Room / PACU
[2016-12-07] MEDS ORDERED: MAGNESIUM HYDROXIDE SUSP 30 ML UDC PO PRN (10:30)
[2016-12-07] MEDS ORDERED: BISACODYL 10 MG SUPP PR PRN (10:30)
[2016-12-07] MEDS ORDERED: TAMSULOSIN HCL 0.4 MG CAP PO PRN (10:30)
[2016-12-07] MEDS ORDERED: SILVER SULFADIAZINE 1% CR 50 GM JAR EXT PRN (10:30)
[2016-12-07] MEDS ORDERED: ALUMINUM/MAGNESIUM/SIMETH (MAALOX MAX) 30 ML UDC PO PRN (10:30)
[2016-12-07] MEDS ORDERED: METOCLOPRAMIDE HCL INJ 5 MG/ML 2 ML VIAL IV PRN (10:30)
--- NOTE | 2016-12-07 10:55 | OPERATIVE REPORT ---
DATE OF OPERATION: 12/07/2016 PREOPERATIVE DIAGNOSIS: Right hip degenerative joint disease. POSTOPERATIVE DIAGNOSIS: Same. PROCEDURE PERFORMED: Right ceramic on highly cross-linked polyethylene uncemented total hip arthroplasty. SURGEON: Dr. Jason Núñez. MERCANTILE REPORTER: Ronnie Castro PA-C. COMPLICATIONS: None. ESTIMATED BLOOD LOSS: 200 mL. FLUID REPLACEMENT: 1000 mL crystalloid fluid replacement. ANESTHESIA: Spinal. DRAINS: None. SPECIMENS: Right femoral head sent for pathology. OPERATIVE INDICATIONS: The patient is a 66-year-old very active gentleman who has a long history of bilateral hip pain and discomfort. He has been through extensive conservative treatment without adequate relief. He had his left hip replaced back in July and has done well from this. He elected to proceed with right total hip arthroplasty. OPERATIVE FINDINGS: Operative findings revealed advanced right hip DJD. He had grade 4 [id number] disease of the femoral head and acetabulum. He had a very large acetabulum. Moderate size joint effusion. OPERATIVE IMPLANTS: Operative implants consisted of: 1. A Biomet G7 size 58 mm acetabular shell. 2. A 6.5 cancellous acetabular screws, 1 at 35 mm length and 1 at 20 mm length. 3. An apex hole eliminator. 4. Highly cross-linked polyethylene liner with a 58 mm outer diameter and 36 mm inner diameter. 5. A DePuy size 7 standard offset uncemented femoral stem. 6. A +8.5/36 mm ceramic articular ball. OPERATIVE PROCEDURE: The patient taken to the operating room, identified and placed on the operating table in supine position. All contact areas were appropriately padded. IV antibiotics were provided by anesthesia team. A spinal anesthetic had been implemented in the holding area. Hines catheter was placed in sterile fashion. The patient was then placed in the left lateral decubitus position. An axillary roll was placed. Stlberg hip positioner was used for positioning. The right hip and leg were then prepped and draped in usual sterile fashion. A posterolateral approach to the right hip was then performed through a curvilinear incision centered over the greater trochanter. Sharp dissection was carried down through the subcutaneous tissues down to the level of the IT band and gluteal fascia. The IT band and gluteal fascia were incised longitudinally in line with skin incision. The underlying greater trochanteric bursa was excised. The piriformis and external rotators were tagged and taken off the posterior aspect of the hip. Great care was taken throughout the procedure to protect the sciatic nerve at all times. Posterior capsulotomy was then performed leaving a large flap for later repair. Hip was internally rotated and dislocated. Femoral neck osteotomy cut was made with the final cut 12 mm above the lesser trochanter. Femoral head was removed and sent for pathology. The femur was retracted anteriorly. Attention was then drawn to the acetabulum. The acetabular labrum was excised. The pulvinar fat was excised. Sequential reaming of the acetabulum was then performed beginning with a size 51 and progressing up to 57. A 58 mm Biomet G7 acetabular shell was then placed in about 40 degrees of lateral opening and 20 degrees of anteversion. It was fixed with two 6.5 cancellous acetabular screws. Some osteophytes were taken off anteriorly. A trial liner was placed. Attention was then drawn to the femur. The proximal femur was entered with [place] cutter followed by canal finder and lateralizing reamer. Sequential reaming of the femur was then performed beginning with a size 2, 3 and progressing up to a 5. I then broached beginning with a size 2 and progressing up to a 5. I could countersink this pretty easily, so I reamed to a 6 and then broached with a 6. I could still countersink this, so I reamed to a 7 and broached to a 7. We got excellent metaphyseal fit. Calcar reamer was used to smoothen off the calcar. We then trialed the hip and the +8.5 articular ball provided full stability and full extension and external rotation and flexion to 90 degrees, internal rotation over 60 degrees. Leg lengths appeared appropriate and equal. We elected to use these implants. All trial implants were removed. An apex hole eliminator was placed, highly cross-linked polyethylene liner was placed. A size 7 standard offset [place] uncemented femoral stem was impacted in position. A +8.5/36 mm ceramic articular ball was impacted in position. The hip was located, once again found to be stable. Attention was then drawn toward closing. The wound was irrigated with copious amounts of pulsatile lavage solution. I did inject locally with 60 mL of 0.5% Marcaine with epinephrine. The patient did receive 1 gram of tranexamic acid preoperatively. The wound was then irrigated. The posterior capsule and external rotators were repaired through drill holes in the posterior trochanter with #2 Ti-Cron suture. The IT band and gluteal fascia were then closed with #1 PDS suture in running fashion. The subcutaneous tissues were then closed with 2 layers, the deep layer #1 Vicryl suture and the disc subcutaneous tissue with 2-0 Dexon suture in a buried interrupted fashion. The skin was closed with skin anabela. Leg was then cleaned and dried and a sterile dressing of Xeroform, 4 x 4's, sterile ABD pad and foam tape was applied. The patient then transferred to the recovery room in stable condition. The patient tolerated the procedure well with no complications. All needle and sponge counts were correct at the end of the operation. I attest to the content of the Intraoperative Record and any orders documented therein. Any exception s are noted below.
--- NOTE | 2016-12-07 11:35 | Anesthesiology Progress Note ---
Anesthesia Post Op Note Date & Time Dec 07, 2016 at 11:35 Vital Signs Pain Intensity: 0 Vital Signs Past 12 Hours Date Time Temp Pulse Resp B/P (MAP) Pulse Ox O2 Delivery O2 Flow Rate FiO2 12/07/16 11:28 14 100 12/07/16 11:27 36.4 61 14 128/75 (92) 100 Nasal Cannula 2.0 12/07/16 11:00 36.6 71 18 123/75 99 Nasal Cannula 2 12/07/16 10:50 72 17 93/60 99 Nasal Cannula 2 12/07/16 10:40 72 14 112/66 100 Nasal Cannula 2 12/07/16 10:30 79 16 117/72 100 Nasal Cannula 2 12/07/16 10:22 36.7 86 18 121/71 100 Oxymask 10 12/07/16 06:30 36.4 85 16 153/92 98 Room Air Notes Mental Status: alert / awake / arousable, participated in evaluation Pt Amnestic to Procedure: Yes Nausea / Vomiting: adequately controlled Pain: adequately controlled Airway Patency, RR, SpO2: stable & adequate BP & HR: stable & adequate Hydration State: stable & adequate Anesthetic Complications: no major complications apparent
[2016-12-07] MEDS: D5W AND 1/2NSS + 20MEQ KCL 1,000 ML IV SCH ×2 (12:22→20:05)
--- NOTE | 2016-12-07 13:01 | DIAGNOSTIC IMAGING REPORT ---
AP PELVIS, CROSSTABLE LATERAL RIGHT HIP History: Right total hip arthroplasty. Degenerative arthritis. Postop. FINDINGS: The patient is status post a right total hip arthroplasty. The hardware is intact. No fracture or dislocation. Skin anabela are in place. There is also an old left total hip arthroplasty. IMPRESSION: Right total hip arthroplasty. No evidence for hardware complication Electronically signed by: Hector Tanner M.D. 12/07/2016 12:59 PM Dictated Date/Time: 12/07/2016 12:59 PM
[2016-12-07] MEDS: FERROUS GLUCONATE 324 MG TAB PO SCH ×2 (13:51→18:43)
[2016-12-07] MEDS: KETOROLAC TROMETHAMINE 15 MG/ML VIAL IV. SCH ×2 (13:52→20:05)
[2016-12-07] MEDS: ACETAMINOPHEN 500 MG TAB PO SCH ×2 (13:52→21:20)
[2016-12-07] MEDS ORDERED: INFLUENZA ADMINISTRATION CHARGE ONE (14:30)
[2016-12-07] MEDS ORDERED: INFLUENZA VACCINE HIGH DOSE 65+ 0.5 ML SYR IM. ONE (14:30)
--- NOTE | 2016-12-07 15:26 | PROGRESS NOTE ---
DATE: 12/07/2016 DATE: 12/07/2016 SUBJECTIVE: A 66-year-old gentleman postop from a right hip replacement. She is doing well. Really not having any pain in the hip. No chest pain or shortness of breath. Not feeling dizzy or lightheaded. OBJECTIVE: VITAL SIGNS: Temperature is 36.4. Vital signs stable. PHYSICAL EXAMINATION: GENERAL: Reveals a pleasant, middle-aged male. He is lying in bed and looks comfortable. I had to wake him when I went in his room this afternoon. LUNGS: Clear to auscultation. HEART: Regular rate and rhythm. ABDOMEN: Soft, nontender, nondistended. EXTREMITY EXAMINATION: Grossly neurovascularly intact except as follows: Examination of the right hip and leg reveals the leg to be well aligned. Hip is located. Dressing is clean, dry and intact. Thigh is soft and supple. He is neurologically intact. X-RAYS: X-rays of the right hip from recovery room were reviewed. Shows right uncemented total hip arthroplasty. The components look to be in good position. No signs of problems. ASSESSMENT: A 66-year-old gentleman postop from right total hip replacement doing well. His pain is controlled. His hip is located. He is neurologically intact. PLAN: 1. DVT prophylaxis including thigh-high TEDs, SCDs, and aspirin twice a day. 2. PT/OT. Weight bear as tolerated. Right total hip protocol. 3. Pain control. Doing well with current pain regimen. 4. IV antibiotics x24 hours. 5. Disposition. Plan to discharge to home with some home health once adequately recovered.
[2016-12-07] MEDS ORDERED: TRANEXAMIC ACID INJ 1,000 MG in SODIUM CHLORIDE 0.9% 100ML 100 ML IV ONE (16:00)
[2016-12-07] MEDS: CHECK SCOPOLAMINE PATCH PLACEMENT SCH ×2 (16:03→23:36)
[2016-12-07] MEDS: CEFAZOLIN IV 1,000 MG in DEXTROSE 5% 50ML 50 ML IV SCH ×2 (16:39→23:36)
[2016-12-07] MEDS: DOCUSATE SODIUM 100 MG CAP PO SCH (21:19)
[2016-12-07] MEDS: ASPIRIN 325 MG ECTAB PO SCH (21:19)
[2016-12-07] MEDS: SENNA 8.6 MG TAB PO SCH (21:20)
[2016-12-08 00:30] VITALS: O2SAT 93
[2016-12-08] MEDS ORDERED: DC INTRASPINAL MORPHINE SCH (01:00)
[2016-12-08] MEDS ORDERED: ZOLPIDEM TARTRATE 5 MG TAB PO PRN (01:00)
[2016-12-08] MEDS ORDERED: ONDANSETRON INJ 2 MG/ML 2 ML VIAL IV PRN (01:00)
[2016-12-08] MEDS ORDERED: DiphenhydrAMINE HCL 50 MG/ML VIAL IV PRN (01:00)
[2016-12-08] MEDS ORDERED: MoRPHine SULFATE 2 MG/ML CARP IV PRN (01:00)
[2016-12-08] MEDS ORDERED: OXYCODONE HCL IR 5 MG TAB (IMMEDIATE RELEASE) PO PRN (01:00)
[2016-12-08] MEDS: KETOROLAC TROMETHAMINE 15 MG/ML VIAL IV. SCH ×4 (01:30→19:57)
[2016-12-08 03:08] VITALS: BP 104/64; PULSE 61; TEMP 36.7; O2SAT 100
[2016-12-08] MEDS: D5W AND 1/2NSS + 20MEQ KCL 1,000 ML IV SCH (03:51)
[2016-12-08] MEDS: ACETAMINOPHEN 500 MG TAB PO SCH ×3 (05:48→21:07)
[2016-12-08 06:22] LABS: BASO % 0.1 %; BASO ABS # 0.01 K/uL (0-0.2); COMPLETE YES; HEMATOCRIT 35.6 % (42-52); IG% 0.2 %; LYMPH % 13.2 %; MEAN CELL VOLUME 85.2 fL (80-100); MEAN CORPUSCULAR HEMOGLOBIN 29.2 pg (25-34); MEAN CORPUSCULAR HGB CONC 34.3 g/dl (32-36); MEAN PLATELET VOLUME 8.5 fL (7.4-10.4); MONO % 10.8 %; NEUT % 74.7 %; PLATELET COUNT 156 K/uL (130-400); RED BLOOD COUNT 4.18 M/uL (4.7-6.1); WHITE BLOOD COUNT 9.82 K/uL (4.8-10.8)
[2016-12-08 07:02] VITALS: BP 108/50; PULSE 65; TEMP 37; O2SAT 93
[2016-12-08 07:11] LABS: BUN/CREATININE RATIO 17.8 (10-20); CALCIUM 8.4 mg/dl (8.5-10.1); CREATININE 0.82 mg/dl (0.60-1.40); POTASSIUM 4.3 mmol/L (3.5-5.1)
[2016-12-08] MEDS: CHECK SCOPOLAMINE PATCH PLACEMENT SCH ×3 (08:00→23:44)
--- NOTE | 2016-12-08 08:26 | PROGRESS NOTE ---
DATE: 12/08/2016 SUBJECTIVE: A 66-year-old gentleman postop day 1 from right total hip replacement. He is doing pretty well. No chest pain or shortness of breath. Rates his pain at about 6 at the worst. OBJECTIVE: VITAL SIGNS: Temperature is 37.0. Vital signs are stable. GENERAL: Reveals a healthy, pleasant middle-aged male. He is sitting up at his bedside chair, looks pretty comfortable. LUNGS: Clear to auscultation. HEART: Regular rate and rhythm. ABDOMEN: Soft, nontender, nondistended. EXTREMITIES: Grossly neurovascularly intact except as follows: Examination of the right hip and leg reveals the dressing to be clean, dry and intact. His leg lengths are equal. Hip is located. He is neurologically intact. LABORATORY DATA: Hemoglobin 12.2. Hematocrit 35.6. Electrolytes are stable. ASSESSMENT: A 66-year-old gentleman postop day 1 from right hip replacement, doing well. Pain is controlled. His hip is located. He is neurologically intact. PLAN: 1. DVT prophylaxis including thigh-high TEDs, SCDs, and aspirin twice a day. 2. PT/OT. Weight bear as tolerated. Right total hip protocol. 3. Pain control, doing pretty well with current pain regimen. 4. Disposition: Plan to discharge to home with some home health once adequately recovered.
[2016-12-08] MEDS: LACTOBACILLUS ACIDOPHILUS (FLORANEX) TAB PO SCH (08:39)
[2016-12-08] MEDS: FERROUS GLUCONATE 324 MG TAB PO SCH ×3 (08:39→18:34)
[2016-12-08] MEDS: ASPIRIN 325 MG ECTAB PO SCH ×2 (08:39→21:07)
[2016-12-08] MEDS: DOCUSATE SODIUM 100 MG CAP PO SCH ×2 (08:39→21:07)
[2016-12-08] MEDS: PANTOprazole SOD 40 MG TAB PO SCH (08:40)
[2016-12-08] MEDS: MULTIVITAMIN TAB PO SCH (08:40)
[2016-12-08] MEDS: TAPENTADOL ER 50 MG TABCR PO SCH ×2 (08:43→21:08)
[2016-12-08] MEDS ORDERED: MULTIVITAMIN TAB PO SCH (09:00)
[2016-12-08 11:52] VITALS: BP 105/62; PULSE 71; O2SAT 99
[2016-12-08] MEDS ORDERED: RXC5 PO (14:43)
[2016-12-08] MEDS ORDERED: ASPEC325 PO (14:43)
[2016-12-08] MEDS ORDERED: ACET-24 PO (14:43)
--- NOTE | 2016-12-08 14:47 | Discharge Instructions ---
Discharge Instructions Date of Service Dec 08, 2016. Admission Reason for Admission: Right Hip Degenerative Joint Disease Discharge Discharge Diagnosis / Problem: Right Hip Replacement Discharge Goals Goal(s): Decrease discomfort, Improve function, Increase independence, Improve disease control, Therapeutic intervention Activity Recommendations Activity Limitations: per Instructions/Follow-up section Weightbearing Status: Right weightbearing . Instructions / Follow-Up Instructions / Follow-Up ACTIVITY RECOMMENDATIONS: Physical Therapy: * Aggressive physical therapy is not usually needed. You will learn to take care of yourself safely and walk. * Follow the "Hip Precautions Instructions." * In some cases, the director social welfare at the hospital will arrange to have a therapist come to your house for the first couple of weeks to help you learn these skills. * You need to practice on your own or with the help of a family member as needed. * When you learn these skills, most of the therapy can be done on your own. Home Exercise: * You were shown a series of exercises in the hospital. Do these exercises three to four times each day including the exercises you were shown in physical therapy. Walking: * Get up and walk several times each day. For the first four weeks, try not to stand or walk for more than one hour at a time. If you do stand or walk for more than one hour, you will not hurt anything, but your leg will likely swell. * As you feel comfortable, you may change from the walker or crutches to a cane and then to independent walking. MEDICATIONS: New Medicine: * You will likely be taking one or more of these medicines: 1. Oxycodone - Take, as directed, when you need it, every four to six hours to control your pain. 2. Aspirin - Thins your blood to lessen the chance of forming a blood clot. * The most common side effects of pain medicine and iron are nausea and constipation. If nausea or constipation is too much of a problem or if you have any questions about your new medicines or doses, call [facility] at [phone]. We will try to help you manage these issues. VERY IMPORTANT TO READ AND REVIEW" Pain: * The immediate post-operative period after hip replacement surgery is often quite painful. * You are given a prescription for pain medicine. You should take it, as directed, when you need it, especially before physical therapy and before going to bed. Pain that interferes with sleep is very common and can last several months. * You will likely need pain medicine for the first two to four weeks. It will not stop all of the pain. The pain will lessen and as you feel better, you may change to milder pain medicine such as Tylenol. * The most common side effects of pain medicine are nausea and constipation, so don't take more than you need. SPECIAL CARE INSTRUCTIONS: TEDs/Elastic Stockings: * The white elastic stockings help limit swelling and prevent blood clots from forming in your legs. The more you wear them, the more they work. * Wear them for six weeks. Prevention of Infection: * Take antibiotics one hour before any dental cleaning, dental work, urological procedure, gastrointestinal procedure or any invasive surgery in order to prevent your new joint from getting infected. * You may get the antibiotics from the doctor performing the procedure or you may call our office at before and we will call in a prescription to the pharmacy of your choice. Things to Watch For: * Drainage from the incision site that occurs more than one week after your surgery. * Severely increased leg pain or swelling. * Increased redness at the incision site. * Fever above 102 degrees Fahrenheit. * Unusual chest pain or shortness of breath. * Unusual pain or burning with urination. Call [facility] at with any of the above problems or if you have any questions about your medicines or recovery. FOLLOW UP VISIT: Make an appointment to see your doctor for approximately two weeks after surgery for a progress check and staple removal by calling the office at . Current Hospital Diet Patient's current hospital diet: Regular Diet Discharge Diet Recommended Diet: Regular Diet Procedures Procedures Performed: Right Total Hip Arthroplasty Umcemented Pending Studies Studies pending at discharge: no Medical Emergencies . Who to Call and When: Medical Emergencies: If at any time you feel your situation is an emergency, please call 105 immediately. . Non-Emergent Contact Non-Emergency issues call your: Surgeon . "Provider Documentation" section prepared by Jason Núñez. . VTE Core Measure Inpt VTE Proph given/why not?: Other Anticoagulation, T.E.D. Stockings, SCD's
[2016-12-08 15:46] VITALS: BP 107/64; PULSE 61; TEMP 36.8; O2SAT 97
[2016-12-08] MEDS: SENNA 8.6 MG TAB PO SCH (21:08)
[2016-12-08 22:48] VITALS: BP 102/56; PULSE 61; TEMP 37; O2SAT 96
[2016-12-09] MEDS: KETOROLAC TROMETHAMINE 15 MG/ML VIAL IV. SCH ×2 (02:02→07:57)
[2016-12-09] MEDS: ACETAMINOPHEN 500 MG TAB PO SCH (05:29)
[2016-12-09 05:57] VITALS: BP 112/69; PULSE 71; TEMP 36.8; O2SAT 98
[2016-12-09] MEDS: CHECK SCOPOLAMINE PATCH PLACEMENT SCH (07:57)
[2016-12-09] MEDS: DOCUSATE SODIUM 100 MG CAP PO SCH (07:58)
[2016-12-09] MEDS: FERROUS GLUCONATE 324 MG TAB PO SCH (07:58)
[2016-12-09] MEDS: MULTIVITAMIN TAB PO SCH (07:59)
[2016-12-09] MEDS: ASPIRIN 325 MG ECTAB PO SCH (07:59)
[2016-12-09] MEDS: LACTOBACILLUS ACIDOPHILUS (FLORANEX) TAB PO SCH (07:59)
[2016-12-09] MEDS: PANTOprazole SOD 40 MG TAB PO SCH (07:59)
[2016-12-09] MEDS: TAPENTADOL ER 50 MG TABCR PO SCH (08:01)
--- NOTE | 2016-12-09 08:28 | PROGRESS NOTE ---
DATE: 12/09/2016 SUBJECTIVE: A 66-year-old gentleman postop day #2 from a right hip replacement. He is doing well. Pain is controlled. No chest pain or shortness of breath. Therapy has gone well. OBJECTIVE: VITAL SIGNS: Temperature 36.8. Vital signs stable. GENERAL: Physical examination reveals a healthy, pleasant, middle-aged male. He is sitting up in his bedside chair and looks comfortable. EXTREMITIES: Examination of the right hip reveals the dressing to be clean, dry and intact. Hip is located. Thigh is soft and supple. He is neurologically intact. ASSESSMENT: A 66-year-old gentleman postop day #2 from a right hip replacement, doing well. PLAN: 1. DVT prophylaxis including thigh-high TEDs, SCDs, and aspirin twice a day. 2. PT/OT. Weightbear as tolerated. Right total hip protocol. 3. Pain control, doing well with current pain regimen. 4. Disposition: Plan to discharge to home with some home health.
[2016-12-09 09:52] VITALS: BP 112/69; PULSE 71; TEMP 36.8; O2SAT 98
== END 2016-12-09 10:27 | disposition home health service (06) | DRG 470 ==
LOC: C.ACU 06:28 → C.3E 07:45 → ENRESERV 10:40
PROVIDERS: ADMIT Orthopaedic Surgery Sports Medicine; ATTEND Orthopaedic Surgery Sports Medicine
PROC: 0SR904A Replacement of Right Hip Joint with Ceramic on Polyethylene Synthetic Substitute, Uncemented, Open Approach (ICD-10-PCS; principal; 2016-12-07 08:50)
DX: M16.11 Unilateral primary osteoarthritis, right hip (principal); Z96.642 Presence of left artificial hip joint; Z79.899 Other long term (current) drug therapy